=== PATIENT | male | born 1960 | race Two or more races ===

== ENCOUNTER 2018-05-12 10:00 | Outpatient (CLI) | payer OTHER | END 2018-05-12 16:54 | disposition home or self-care (01) | LOC: SONOGRAMA 10:00 | DX: K76.0 Fatty (change of) liver, not elsewhere classified (principal); N40.1 Benign prostatic hyperplasia with lower urinary tract symptoms ==

== ENCOUNTER 2020-02-01 15:18 | Emergency (ER) | payer OTHER ==
[~2020-02-01] VITALS: Ht 167.6 cm; Wt 79.4 kg
== END 2020-02-01 19:14 | disposition home or self-care (01) ==
LOC: ER 15:18
DX: M62.830 Muscle spasm of back (principal)

== ENCOUNTER 2020-02-27 10:57 | Outpatient (CLI) | payer OTHER | END 2020-02-27 11:00 | disposition home or self-care (01) | LOC: SONOGRAMA 10:57 | PROVIDERS: ATTEND Physical Medicine & Rehabilitation | DX: D17.21 Benign lipomatous neoplasm of skin and subcutaneous tissue of right arm (principal) ==

== ENCOUNTER 2020-06-02 08:21 | Outpatient (CLI) | payer OTHER | END 2020-06-02 08:33 | disposition home or self-care (01) | LOC: SONOGRAMA 08:21 → MAMO-SONO 08:45 | DX: E04.1 Nontoxic single thyroid nodule (principal); E03.8 Other specified hypothyroidism; N40.1 Benign prostatic hyperplasia with lower urinary tract symptoms ==

== ENCOUNTER 2021-01-30 08:47 | Outpatient (CLI) | payer OTHER | END 2021-01-30 09:02 | disposition home or self-care (01) | LOC: SONOGRAMA 08:47 → MAMO-SONO 02-06 08:15 | DX: N52.8 Other male erectile dysfunction (principal); N40.1 Benign prostatic hyperplasia with lower urinary tract symptoms; R03.0 Elevated blood-pressure reading, without diagnosis of hypertension; I25.10 Atherosclerotic heart disease of native coronary artery without angina pectoris; K76.0 Fatty (change of) liver, not elsewhere classified ==

== ENCOUNTER 2021-03-10 18:01 | Emergency (ER) | payer OTHER ==
[~2021-03-10] VITALS: Ht 167.6 cm; Wt 77.1 kg
[2021-03-10] MEDS ORDERED: NORVASC5 MG (18:28)
== END 2021-03-10 21:37 | disposition home or self-care (01) ==
LOC: ER 18:01
DX: R60.1 Generalized edema (principal); S60.222S Contusion of left hand, sequela; W18.09XS Striking against other object with subsequent fall, sequela

== ENCOUNTER 2022-01-30 13:02 | Outpatient (CLI) | payer OTHER ==
[~2022-01-30 13:02] MED LIST: NORVASC5 MG
== END 2022-01-30 13:03 | disposition home or self-care (01) ==
LOC: LAB 13:02
DX: D64.9 Anemia, unspecified (principal); I10 Essential (primary) hypertension; R30.1 Vesical tenesmus; E78.2 Mixed hyperlipidemia; R73.02 Impaired glucose tolerance (oral)